=== PATIENT | female | born 1960 | race African-American/Black ===

== ENCOUNTER 2019-12-22 21:55 | IRF | payer OTHER, SELFPAY ==
[2019-12-22 22:09] VITALS: BMI 26.5
[2019-12-22 22:10] VITALS: BP 130/67; PULSE 83; RESP 18; TEMP 36.2; O2SAT 100
[2019-12-22 22:45] LABS: Glucose Point of Care 233 (65-105)
--- NOTE | 2019-12-22 23:33 | ADMGEN ---
This patient, Letty Andrade, was admitted to [facility] Room 226-02. Patient/family oriented to hospital policies and general routines including ID bracelet, bed and alarms, visiting hours, pain management, procedures, bathroom and other care routines, personal items, smoking policy, room service/diet, and visiting hours. Valuables list has been completed. Information on how to activate the Rapid Response Team has been discussed. Patient/Family are encouraged to report perceived risks to care and to ask questions if they do not understand what they are told or what they should do.
[2019-12-22] MEDS: CEFUROXIME AXETIL 250 MG TABLET PO (23:48)
[2019-12-22] MEDS: metroNIDAZOLE 250 MG TABLET 500 MG PO (23:52)
[2019-12-23 04:40] LABS: Basophils Absolute Auto 0.1 K/mm3 (0.0-0.1); Basophils Percent Auto 0.6 % (0.2-1.2); Eosinophils Absolute Auto 0.3 K/mm3 (0-0.3); Eosinophils Percent Auto 2.3 % (0-4.4); Hematocrit 30.5 % (37.0-47.0); Hemoglobin 10.3 g/dL (12.0-15.0); Immature Granulocyte Absolute 0.16 K/mm3 (0.00-0.031); Immature Granulocyte Percent A 1.3 % (0-0.5); Lymphocytes Absolute Auto 3.61 K/mm3 (0.9-3.2); Lymphocytes Percent Auto 30.3 % (18.3-44.2); Mean Corpuscular HGB Conc 33.8 g/dl (32-36); Mean Corpuscular Hemoglobin 27.7 pg (26-34); Monocytes Absolute Auto 0.9 K/mm3 (0.1-0.6); Monocytes Percent Auto 7.2 % (2.6-8.5); Neutrophils Percent Auto 58.3 % (45.5-73.1); Platelet Count Result 524 k/mm3 (150-375); Red Blood Count 3.72 M/mm3 (4.2-5.4); Red Cell Distribution Width 15.5 % (11.5-14.5); White Blood Count 11.9 K/mm3 (4.5-10.0)
[2019-12-23 04:49] LABS: Hemoglobin A1C 10.1 % (<5.7)
[2019-12-23 04:55] LABS: Blood Urea Nitrogen 10 mg/dL (7-17); Calcium 8.4 mg/dL (8.4-10.2); Carbon Dioxide 28 mmol/L (22-30); Chloride 103 mmol/L (98-107); Estimated CRCL calculation 59 ml/min; Estimated Glomerular Filt Rate > 60; Glucose 159 mg/dL (65-105); Potassium 4.2 mmol/L (3.4-5.0); Sodium 137 mmol/L (137-145)
[2019-12-23 06:00] VITALS: BP 127/63; PULSE 79; RESP 18; TEMP 36.6; O2SAT 94
[2019-12-23 06:57] LABS: Glucose Point of Care 154 (65-105)
[2019-12-23] MEDS: metroNIDAZOLE 250 MG TABLET 500 MG PO ×3 (07:18→20:30)
[2019-12-23] MEDS: AMLODIPINE BESYLATE 5 MG TABLET 10 MG PO (08:48)
[2019-12-23] MEDS: CEFUROXIME AXETIL 250 MG TABLET PO ×2 (08:48→20:29)
[2019-12-23] MEDS: INSULIN GLARGINE (*BKC) 100 UNITS/ML 25 UNITS SUB-Q (08:49)
--- NOTE | 2019-12-23 11:45 | WPDREHABHP ---
H&P: HPI History of Present Illness Chief complaint: R BKA Narrative: Letty Andrade is a 59 year old femaleHISTORY OF PRESENT ILLNESS: The patient's primary rehab impairment category is 10/amputation/lower extremity The etiologic diagnosis is gangrene right foot / status post right [id number] amputation I saw this patient [id number] on December 23, 2019 at 11:00 a.m. The patient is a 59-year-old right-handed Afro [place]ian woman with a past medical history of poorly controlled diabetes mellitus, Graves disease, hypertension, and peripheral vascular disease who presented to [facility] on December 15, 2019 from the vascular surgeon's office with gangrene of the right foot. Patient states that she has had the symptoms for months but was afraid to come to the hospital to the ID- pandemic. She was found to have gangrene of the right foot with leukocytosis of 27,000 and was directly admitted for an amputation. She was started on IV cefepime, Flagyl, vancomycin. Her blood sugar on presentation was 355 she was noted to have an acute kidney injury with an elevated creatinine. She was treated with gentle hydration and insulin. Vascular surgery was consulted and the patient underwent a [id number] amputation December 17, 2019. Postoperatively the patient has experienced acute blood-loss anemia, acute postoperative pain, leukocytosis, urinary retention had Flowers catheter for December 17 to December 18. , hypertension and hyperglycemia. She is currently on oral and injects for postoperative pain, she is hemodynamically stable at present with a hemoglobin of 11.4, leukocytosis is improving from 20/7 1213 1000.900 acute kidney injury has resolved with a creatinine of 0.7 now urinary retention has resolved and the patient is urinating on her own, hypertension is under control with oral medications and hyperglycemia is under control with insulin administration. She is on a regular diabetic diet The patient has not traveled outside the [place] in the past 21 days and has not had close personal contact anyone that has. The patient os has not traveled to an area of the [place] that is experiencing no transmission of the Coronavirus and has not had close personal contact with anyone that has. That patient does not have fever. The patient is not experiencing any lower respiratory illness symptoms. Therapy was initiated at the acute care facility and the patient transferred to us from [facility] on December 22, 2019 on FALLS OR SURGERIES: The patient has had major surgeries in the 100 days prior to admission. They had no falls in the past year. They had no falls with injury in the past year. PAST MEDICAL HISTORY: uncontrolled diabetes mellitus, Graves disease, hypertension, peripheral vascular disease, gangrene right foot, allergic rhinitis, hayfever, tobacco abuse. PAST SURGICAL HISTORY: 1975, vaginal delivery 90 in 77, amputation 2nd through 4th toes on August 13, 2017 SOCIAL HISTORY: patient lives the children it to level home 2 steps to enter. Patient was completely independent prior. Her granddaughter will be her designated caregiver following rehab. There are no falls in the past 6 months listed. There was a major surgery this admission. Current everyday smoker. No alcohol or drug abuse FAMILY HISTORY: first-degree relatives with hypertension and diabetes PRIOR LEVEL OF FUNCTION: Eating was INDEPENDENT Oral Care was INDEPENDENT Toileting Hygiene was INDEPENDENT Shower/Bathing was INDEPENDENT Upper Body Dressing was INDEPENDENT Lower Body Dressing was INDEPENDENT Donning/Balm Footwear was INDEPENDENT Rolling Left and Right was INDEPENDENT Sit to Lying was INDEPENDENT Lying to Sitting was INDEPENDENT Sit to Stand was INDEPENDENT Bed to Chair Transfers was INDEPENDENT Toilet Transfers was INDEPENDENT Walking was INDEPENDENT >500 feet with NO DEVICE Wheelchair Mobility was NOT APPLICABLE PRIOR
[2019-12-23 13:06] VITALS: BMI 26.5
[2019-12-23 14:00] VITALS: BP 149/77; PULSE 100; RESP 18; TEMP 36.3; O2SAT 92
[2019-12-23 22:00] VITALS: BP 123/64; PULSE 68; RESP 18; TEMP 36.2; O2SAT 100
[2019-12-24 06:00] VITALS: BP 126/62; PULSE 66; RESP 18; TEMP 36.4; O2SAT 100
[2019-12-24] MEDS: metroNIDAZOLE 250 MG TABLET 500 MG PO ×3 (06:48→20:47)
[2019-12-24 07:04] LABS: Glucose Point of Care 156 (65-105)
[2019-12-24] MEDS: CEFUROXIME AXETIL 250 MG TABLET PO ×2 (09:23→20:47)
[2019-12-24] MEDS: AMLODIPINE BESYLATE 5 MG TABLET 10 MG PO (09:23)
[2019-12-24] MEDS: INSULIN GLARGINE (*BKC) 100 UNITS/ML 25 UNITS SUB-Q (09:24)
--- NOTE | 2019-12-24 11:05 | RPD ---
INDIVIDUALIZED PLAN OF CARE FOR Letty Andrade Brief Synthesis of Pre-Admission Screen, Post-Admission Evaluation and Therapy Evaluations: The patient presents to rehab with gangrene of the right foot. Comorbidities include: Allergic rhinitis/hayfever, hypertension, peripheral vascular disease, uncontrolled diabetes mellitus, Grave's disease, status post right below knee amputation for gangrene right foot, acute postoperative pain, acute blood loss anemia, urinary urgency.The patient requires physician services for medical oversight, management of post-op complications in the setting of present comorbidities, management of uncontrolled diabetes mellitus diagnosis, and pain management. The patient requires nursing services for anticoagulation therapy, diabetes training, DVT prophylactics, IV administration, infection protection, medication management and education, pressure relief, and wound care. Deficits include:ADLs, Balance, Endurance, Family Training/Education, Mobility, Pain Management, ROM, Safety, Strength, Transfers Slabbing Machine Operator/Case Management for: Discharge Planning and Patient/Family Counseling Physical Therapy: 5 days per week for 90 minutes. Treatments may include: Therapeutic Exercise, Gait Training, Neuromuscular Re-education, Transfer Training, Community Reintegration, Bed Mobility, Patient/Family Education, Wheelchair Mobility Group Therapy/Concurrent Therapy Rationales: -Improve attention span during functional activities in a distracted environment. -Enhance problem solving and/or adequate judgment skills during functional activities in a distracted environment. -Promote increased safety awareness in a distracted environment to reduce fall risk with functional tasks, transfers, and ambulation to allow a more safe, self-sufficient return to the home environment. -Improve dynamic balance skills to promote safety and independence with functional activities in a distracted environment for maximum gain. Occupational Therapy: 5 days per week for 90 minutes. Treatments may include: Therapeutic Exercise, Therapeutic Activity, Cognitive Training, Self-Care Transfer Training, Community Reintegration, Home Management, Patient/Family Education, Wheelchair Mobility Training, Energy Conservation Training Group Therapy/Concurrent Therapy Rationales: -Allow therapist to observe and teach generalization and carry-over of skills learned in individual therapy. -Enhance problem solving and sequencing skills during therapeutic activities in a distracted environment. -Promote increased safety awareness in a realistic setting to reduce fall risk with functional tasks due to visual and verbal distractions. -Increase functional level with ADLs, ADL transfers and use of adaptive equipment through therapeutic activities with others while promoting safety to allow a more safe, self-sufficient return home. Medical Prognosis: Good Anticipated Length of Stay: 12 days Rehab Goals: Eating Goal: 06-Independent Oral Hygiene Goal: 06-Independent Toileting Hygiene Goal: 06-Independent Shower/Bathe Self Goal: 04-Supervision or Touching Assistance Upper Body Dressing Goal: 06-Independent Lower Body Dressing Goal: 06-Independent Putting On/Taking Off Footwear Goal: 06-Independent Rolling Left and Right Goal: 06-Independent Sit to Lying Goal: 06-Independent Lying to Sitting on Side of Bed Goal: 06-Independent Sit to Stand Goal: 06-Independent Chair/Uou-xi-Roifx Transfer Goal: 06-Independent Toilet Transfer Goal: 06-Independent Car Transfer Goal: 06-Independent Walk 10' Goal: 06-Independent Walk 50' with Two Turns Goal: 06-Independent Walk 150' Goal: 88-Not Attempted Due to Medical Condition/Safety Concerns Walk 10' on Uneven Surface Goal: 06-Independent 1 Step (Curb) Goal: 03-Partial/Moderate Assistance 4 Steps Goal: 03-Partial/Moderate Assistance 12 Steps Goal Score: 09-Not Applicable Picking Up Object Goal: 06-Independent Wheel 50' with Two Turns Score: 06-In
--- NOTE | 2019-12-24 12:58 | WPDNEURORHBP ---
Subjective Date/time seen: 12/24/19 12:58 Interval history: this 59-year-old Afro-Nigerian diabetic woman was admitted after having had right BKA. She denies any unusual amount of pain. She also denies any headache nausea vomiting chest pain shortness of breath fever chills or sore throat The evidence of peripheral neuropathy and also the peripheral vascular disease is evident and stable Review of Systems Review of Systems: All systems reviewed & are unremarkable except as noted in HPI and below Functional Status Ambulation Ability Ability to Ambulate 10 Feet: Contact Guard Ambulation Assistive Devices: Walker, Standard Transfers Ability Ability to Transfer In/Out of Chair: Standby Assistance Exam Const: General: comfortable and no acute distress HENMT: General nose exam: Normal nares present Mouth: Yes moist mucous membranes Eyes: General: appearance normal, both eyes and all related structures Neck: Neck: supple and no JVD Resp: Effort & Inspection: normal respiratory effort Auscultation: clear to auscultation bilaterally Cardio: Rate: regular rate Rhythm: regular rhythm GI: GI Palp: Yes Soft to palpation Auscultation: normal bowel sounds Skin: General skin exam: normal color and no rashes or lesions noted Neuro: Other: patient is awake alert will oriented has normal speech and language function the generalized weakness is related to peripheral neuropathy and the surgery performed along with peripheral vascular disease Extrem: Other: the stump of right BKA he is Espinoza Objective Data Vital Signs Vital Signs: Vital Signs - 24 hr 12/23/19 14:00 12/23/19 22:00 12/24/19 06:00 Temperature 36.3 C L 36.2 C L 36.4 C Pulse Rate 100 68 66 Respiratory Rate 18 18 18 Blood Pressure 149/77 H 123/64 126/62 Pulse Oximetry 92 100 100 Intake/Output Intake/Output: Intake & Output 12/21/19 12/22/19 12/23/19 12/24/19 23:59 23:59 23:59 23:59 Intake Total 960 240 Balance 960 240 Meds/Results Medications: Active Medications Generic Name Dose Route Start Last Admin Trade Name Freq PRN Reason Stop Dose Admin Hydrocodone Bitart/Acetaminophen 1 tab 12/22/19 22:40 12/23/19 23:36 [place] 10-325 Mg PO 1 tab Q4H PRN Administration Pain Amlodipine Besylate 10 mg 12/23/19 09:00 12/24/19 09:23 Norvasc PO 10 mg DAILY ARMANI Administration Carisoprodol 250 mg 12/22/19 22:40 Soma PO TID PRN Spasms Cefuroxime Axetil 250 mg 12/22/19 23:00 12/24/19 09:23 Ceftin PO 250 mg Q12HR ARMANI Administration Dextrose 12.5 gm 12/22/19 22:33 Dextrose 50% Syringe IV PUSH PRN PRN Hypoglycemia Protocol Glucagon 1 mg 12/22/19 22:33 Glucagon For Inj IM PRN PRN Hypoglycemia Protocol Glucose 15 gm 12/22/19 22:33 Glutose 15 PO PRN PRN Hypoglycemia Protocol Dextrose 1,000 mls @ 100 mls/hr 12/22/19 22:33 Dextrose 5% 1,000 Ml IVPB PRN PRN Hypoglycemia Protocol Insulin Glargine 25 units 12/23/19 09:00 12/24/19 09:24 Lantus SUB-Q 25 units DAILY ARMANI Administration Metronidazole 500 mg 12/22/19 23:00 12/24/19 06:48 Flagyl PO 500 mg Q8HR ARMANI Administration Promethazine HCl/Codeine 5 ml 12/22/19 22:40 Phenergan /C Codeine PO Q6H PRN Cough Zinc Acetate/Diphenhydramine 1 applic 12/23/19 20:38 Benadryl 1% Cream TOPICAL BID PRN Itching Labs Labs: Laboratory Results - last 24 hr 12/24/19 07:02 POC Capillary Glucose 156 H Progress Note: A&P Assessment and Plan (1) Gangrene of right foot: Code(s): I96 - Gangrene, not elsewhere classified Status: Acute (2) Diabetes mellitus: Code(s): E11.9 - Type 2 diabetes mellitus without complications Status: Acute (3) Hypertension: Code(s): I10 - Essential (primary) hypertension Status: Acute (4) Peripheral neuropathy: Code(s): G62.9 - Po
[2019-12-24 14:00] VITALS: BP 147/67; PULSE 86; RESP 18; TEMP 36.3; O2SAT 100
[2019-12-24 21:43] VITALS: BP 139/84; PULSE 88; RESP 18; TEMP 36.9; O2SAT 99
[2019-12-25 05:07] LABS: Glucose Point of Care 196 (65-105)
[2019-12-25 06:00] VITALS: BP 139/78; PULSE 79; RESP 18; TEMP 36.7; O2SAT 98
[2019-12-25 06:03] LABS: Glucose Point of Care 142 (65-105)
[2019-12-25] MEDS: metroNIDAZOLE 250 MG TABLET 500 MG PO ×3 (06:04→21:22)
[2019-12-25] MEDS: AMLODIPINE BESYLATE 5 MG TABLET 10 MG PO (09:56)
[2019-12-25] MEDS: CEFUROXIME AXETIL 250 MG TABLET PO ×2 (09:56→21:22)
[2019-12-25] MEDS: INSULIN GLARGINE (*BKC) 100 UNITS/ML 25 UNITS SUB-Q (10:02)
[2019-12-25 12:59] LABS: Glucose Point of Care 155 (65-105)
[2019-12-25 14:00] VITALS: BP 128/61; PULSE 81; RESP 19; TEMP 36.1; O2SAT 99
--- NOTE | 2019-12-25 16:04 | WPDNEURORHBP ---
Subjective Date/time seen: 12/25/19 16:04 Interval history: this 59 year old Afro-[place] woman is here after having had a right and BKA she has underlying diabetes mellitus is a smoker and also a relatively noncompliant in taking care of her however diabetes The BKA is stable she denies any headache nausea vomiting chest pain shortness of breath fever chills sore throat Review of Systems Review of Systems: All systems reviewed & are unremarkable except as noted in HPI and below Functional Status Ambulation Ability Ability to Ambulate 10 Feet: Contact Guard Ambulation Assistive Devices: Walker, Standard Transfers Ability Ability to Transfer In/Out of Chair: Standby Assistance Exam Const: General: comfortable and no acute distress HENMT: General nose exam: Normal nares present Mouth: Yes moist mucous membranes Eyes: General: appearance normal, both eyes and all related structures Neck: Neck: supple and no JVD Resp: Effort & Inspection: normal respiratory effort Auscultation: clear to auscultation bilaterally Cardio: Rate: regular rate Rhythm: regular rhythm GI: GI Palp: Yes Soft to palpation Auscultation: normal bowel sounds Skin: General skin exam: normal color and no rashes or lesions noted Neuro: Other: patient is awake alert well oriented time place and person has normal cranial examination decreased strength lower extremities more so than the upper extremities related to neuropathy needing assistance is all the activities of daily living Extrem: Other: right BKA and bilateral neuropathy Psych: Mental Status: mental status grossly normal Objective Data Vital Signs Vital Signs: Vital Signs - 24 hr 12/24/19 21:43 12/25/19 06:00 Temperature 36.9 C 36.7 C Pulse Rate 88 79 Respiratory Rate 18 18 Blood Pressure 139/84 139/78 Pulse Oximetry 99 98 Intake/Output Intake/Output: Intake & Output 12/22/19 12/23/19 12/24/19 12/25/19 23:59 23:59 23:59 23:59 Intake Total 960 720 240 Balance 960 720 240 Meds/Results Medications: Active Medications Generic Name Dose Route Start Last Admin Trade Name Freq PRN Reason Stop Dose Admin Hydrocodone Bitart/Acetaminophen 1 tab 12/22/19 22:40 12/25/19 09:56 [place] 10-325 Mg PO 1 tab Q4H PRN Administration Pain Amlodipine Besylate 10 mg 12/23/19 09:00 12/25/19 09:56 Norvasc PO 10 mg DAILY ARMANI Administration Carisoprodol 250 mg 12/22/19 22:40 Soma PO TID PRN Spasms Cefuroxime Axetil 250 mg 12/22/19 23:00 12/25/19 09:56 Ceftin PO 250 mg Q12HR ARMANI Administration Dextrose 12.5 gm 12/22/19 22:33 Dextrose 50% Syringe IV PUSH PRN PRN Hypoglycemia Protocol Glucagon 1 mg 12/22/19 22:33 Glucagon For Inj IM PRN PRN Hypoglycemia Protocol Glucose 15 gm 12/22/19 22:33 Glutose 15 PO PRN PRN Hypoglycemia Protocol Dextrose 1,000 mls @ 100 mls/hr 12/22/19 22:33 Dextrose 5% 1,000 Ml IVPB PRN PRN Hypoglycemia Protocol Insulin Glargine 25 units 12/23/19 09:00 12/25/19 10:02 Lantus SUB-Q 25 units DAILY ARMANI Administration Metronidazole 500 mg 12/22/19 23:00 12/25/19 06:04 Flagyl PO 500 mg Q8HR ARMANI Administration Promethazine HCl/Codeine 5 ml 12/22/19 22:40 Phenergan /C Codeine PO Q6H PRN Cough Zinc Acetate/Diphenhydramine 1 applic 12/23/19 20:38 Benadryl 1% Cream TOPICAL BID PRN Itching Labs Labs: Laboratory Results - last 24 hr 12/24/19 12/25/19 12/25/19 20:34 06:00 12:46 POC Capillary Glucose 196 H 142 H 155 H Progress Note: A&P Assessment and Plan (1) Gangrene of right foot: Code(s): I96 - Gangrene, not elsewhere classified Status: Acute (2) Diabetes mellitus: Code(s): E11.9 - Type 2 diabetes mellitus without complications Status: Acute (3) Hypertension: Code(s): I10 - Essential (primary) hypertension
[2019-12-25 17:42] LABS: Glucose Point of Care 183 (65-105)
[2019-12-25 20:00] VITALS: BP 146/62; PULSE 89; RESP 20; TEMP 37; O2SAT 98
[2019-12-25 21:46] LABS: Glucose Point of Care 269 (65-105)
[2019-12-26 06:00] VITALS: BP 112/61; PULSE 78; RESP 20; TEMP 37.1; O2SAT 100
[2019-12-26] MEDS: metroNIDAZOLE 250 MG TABLET 500 MG PO ×3 (06:44→20:07)
[2019-12-26 07:00] LABS: Glucose Point of Care 168 (65-105)
[2019-12-26] MEDS: CEFUROXIME AXETIL 250 MG TABLET PO ×2 (10:02→20:07)
[2019-12-26] MEDS: AMLODIPINE BESYLATE 5 MG TABLET 10 MG PO (10:02)
[2019-12-26] MEDS: INSULIN GLARGINE (*BKC) 100 UNITS/ML 25 UNITS SUB-Q (10:05)
[2019-12-26 12:50] LABS: Glucose Point of Care 234 (65-105)
[2019-12-26 14:00] VITALS: BP 144/72; PULSE 100; RESP 20; TEMP 36.4; O2SAT 100
[2019-12-26 17:18] LABS: Glucose Point of Care 364 (65-105)
--- NOTE | 2019-12-26 18:39 | WPDNEURORHBP ---
Subjective Date/time seen: 12/26/19 18:39 Interval history: this 59-year-old diabetic woman is here after having had a right BKA she is doing fairly well and wants to go home however has not achieved the goal yet she denies any headache nausea vomiting chest pain shortness of breath fever chills sore throat Review of Systems Review of Systems: All systems reviewed & are unremarkable except as noted in HPI and below Functional Status Ambulation Ability Ability to Ambulate 10 Feet: Contact Guard Ambulation Assistive Devices: Walker, Standard Transfers Ability Ability to Transfer In/Out of Chair: Standby Assistance Exam Const: General: comfortable and no acute distress HENMT: General nose exam: Normal nares present Mouth: Yes moist mucous membranes Eyes: General: appearance normal, both eyes and all related structures Neck: Neck: supple and no JVD Resp: Effort & Inspection: normal respiratory effort Auscultation: clear to auscultation bilaterally Cardio: Rate: regular rate Rhythm: regular rhythm GI: GI Palp: Yes Soft to palpation Auscultation: normal bowel sounds Skin: General skin exam: normal color and no rashes or lesions noted Other: the area in both antecubital fossa shows some discoloration however it is related to the IV sites where she has had the application of the tapes Neuro: Other: mental status exam hill normal cranial exam shows normal distance is generally improving right BKA is stable Extrem: Other: right BKA stable Psych: Mental Status: mental status grossly normal Objective Data Vital Signs Vital Signs: Vital Signs - 24 hr 12/25/19 20:00 12/26/19 06:00 12/26/19 14:00 Temperature 37.0 C 37.1 C 36.4 C L Pulse Rate 89 78 100 Respiratory Rate 20 20 20 Blood Pressure 146/62 H 112/61 144/72 H Pulse Oximetry 98 100 100 Intake/Output Intake/Output: Intake & Output 12/23/19 12/24/19 12/25/19 12/26/19 23:59 23:59 23:59 23:59 Intake Total 502 388 4241 720 Balance 250 560 0168 720 Meds/Results Medications: Active Medications Generic Name Dose Route Start Last Admin Trade Name Freq PRN Reason Stop Dose Admin Hydrocodone Bitart/Acetaminophen 1 tab 12/22/19 22:40 12/25/19 21:26 [place] 10-325 Mg PO 1 tab Q4H PRN Administration Pain Amlodipine Besylate 10 mg 12/23/19 09:00 12/26/19 10:02 Norvasc PO 10 mg DAILY ARMANI Administration Carisoprodol 250 mg 12/22/19 22:40 Soma PO TID PRN Spasms Cefuroxime Axetil 250 mg 12/22/19 23:00 12/26/19 10:02 Ceftin PO 250 mg Q12HR ARMANI Administration Dextrose 12.5 gm 12/22/19 22:33 Dextrose 50% Syringe IV PUSH PRN PRN Hypoglycemia Protocol Glucagon 1 mg 12/22/19 22:33 Glucagon For Inj IM PRN PRN Hypoglycemia Protocol Glucose 15 gm 12/22/19 22:33 Glutose 15 PO PRN PRN Hypoglycemia Protocol Dextrose 1,000 mls @ 100 mls/hr 12/22/19 22:33 Dextrose 5% 1,000 Ml IVPB PRN PRN Hypoglycemia Protocol Insulin Glargine 25 units 12/23/19 09:00 12/26/19 10:05 Lantus SUB-Q 25 units DAILY ARMANI Administration Metronidazole 500 mg 12/22/19 23:00 12/26/19 13:13 Flagyl PO 500 mg Q8HR ARMANI Administration Promethazine HCl/Codeine 5 ml 12/22/19 22:40 Phenergan /C Codeine PO Q6H PRN Cough Zinc Acetate/Diphenhydramine 1 applic 12/23/19 20:38 Benadryl 1% Cream TOPICAL BID PRN Itching Labs Labs: Laboratory Results - last 24 hr 12/25/19 12/26/19 12/26/19 21:32 06:18 12:40 POC Capillary Glucose 269 H 168 H 234 H 12/26/19 17:15 POC Capillary Glucose 364 H Progress Note: A&P Assessment and Plan (1) Gangrene of right foot: Code(s): I96 - Gangrene, not elsewhere classified Status: Acute (2) Diabetes mellitus: Code(s): E11.9 - Type 2 diabetes mellitus without complications Status: Acute (3) Hypertension: Code(
[2019-12-26 21:44] LABS: Glucose Point of Care 373 (65-105)
[2019-12-26 22:04] VITALS: BP 148/87; PULSE 86; RESP 20; TEMP 36.4; O2SAT 100
[2019-12-27 06:00] VITALS: BP 118/54; PULSE 79; RESP 20; TEMP 37.1; O2SAT 96
[2019-12-27 06:49] LABS: Glucose Point of Care 233 (65-105)
[2019-12-27] MEDS: metroNIDAZOLE 250 MG TABLET 500 MG PO ×3 (06:52→21:02)
[2019-12-27] MEDS: AMLODIPINE BESYLATE 5 MG TABLET 10 MG PO (09:08)
[2019-12-27] MEDS: CEFUROXIME AXETIL 250 MG TABLET PO ×2 (09:09→21:02)
[2019-12-27] MEDS: INSULIN GLARGINE (*BKC) 100 UNITS/ML 25 UNITS SUB-Q (09:10)
--- NOTE | 2019-12-27 10:59 | WPDNEURORHBP ---
Subjective Date/time seen: DM ,S/P right BKA12/27/19 10:59 Review of Systems Review of Systems: All systems reviewed & are unremarkable except as noted in HPI and below Functional Status Ambulation Ability Ability to Ambulate 10 Feet: Contact Guard Ambulation Assistive Devices: Walker, Standard Transfers Ability Ability to Transfer In/Out of Chair: Standby Assistance Exam Const: General: cooperative, comfortable and no acute distress HENMT: Head: normal to inspection Eyes: General: appearance normal, both eyes and all related structures Neck: Neck: full ROM Resp: Auscultation: clear to auscultation bilaterally Cardio: Rate: regular rate Rhythm: regular rhythm GI: Percussion: Yes normal to percussion Auscultation: normal bowel sounds Skin: General skin exam: no rashes or lesions noted Neuro: General: oriented to person, oriented to place, oriented to time and moves all extremities Cranial nerves: Yes CN's II-XII intact bilaterally, Yes Equal, round and reactive pupils present, Yes Nystagmus not present, Yes Normal facial strength present, Yes Midline tongue present, Yes Ability to bilaterally rotate head present and Yes Ability to bilaterally elevate shoulders present Cognition (Neuro): normal cognition Speech: normal speech Extrem: Right lower extremity: knee (right below knee amputee) Psych: Appearance: grossly normal Objective Data Vital Signs Vital Signs: Vital Signs - 24 hr 12/26/19 14:00 12/26/19 22:04 12/27/19 06:00 Temperature 36.4 C L 36.4 C 37.1 C Pulse Rate 100 86 79 Respiratory Rate 20 20 20 Blood Pressure 144/72 H 148/87 H 118/54 L Pulse Oximetry 100 100 96 Intake/Output Intake/Output: Intake & Output 12/24/19 12/25/19 12/26/19 12/27/19 23:59 23:59 23:59 23:59 Intake Total 720 1200 720 200 Balance 720 1200 720 200 Meds/Results Medications: Active Medications Generic Name Dose Route Start Last Admin Trade Name Freq PRN Reason Stop Dose Admin Hydrocodone Bitart/Acetaminophen 1 tab 12/22/19 22:40 12/27/19 09:57 [place] 10-325 Mg PO 1 tab Q4H PRN Administration Pain Amlodipine Besylate 10 mg 12/23/19 09:00 12/27/19 09:08 Norvasc PO 10 mg DAILY ARMANI Administration Carisoprodol 250 mg 12/22/19 22:40 Soma PO TID PRN Spasms Cefuroxime Axetil 250 mg 12/22/19 23:00 12/27/19 09:09 Ceftin PO 250 mg Q12HR ARMANI Administration Dextrose 12.5 gm 12/22/19 22:33 Dextrose 50% Syringe IV PUSH PRN PRN Hypoglycemia Protocol Glucagon 1 mg 12/22/19 22:33 Glucagon For Inj IM PRN PRN Hypoglycemia Protocol Glucose 15 gm 12/22/19 22:33 Glutose 15 PO PRN PRN Hypoglycemia Protocol Dextrose 1,000 mls @ 100 mls/hr 12/22/19 22:33 Dextrose 5% 1,000 Ml IVPB PRN PRN Hypoglycemia Protocol Insulin Glargine 25 units 12/23/19 09:00 12/27/19 09:10 Lantus SUB-Q 25 units DAILY ARMANI Administration Metronidazole 500 mg 12/22/19 23:00 12/27/19 06:52 Flagyl PO 500 mg Q8HR ARMANI Administration Promethazine HCl/Codeine 5 ml 12/22/19 22:40 Phenergan /C Codeine PO Q6H PRN Cough Zinc Acetate/Diphenhydramine 1 applic 12/23/19 20:38 Benadryl 1% Cream TOPICAL BID PRN Itching Labs Labs: Laboratory Results - last 24 hr 12/26/19 12/26/19 12/26/19 12:40 17:15 21:16 POC Capillary Glucose 234 H 364 H 373 H 12/27/19 06:46 POC Capillary Glucose 233 H Progress Note: A&P Assessment and Plan (1) Gangrene of right foot: Code(s): I96 - Gangrene, not elsewhere classified Status: Acute (2) Diabetes mellitus: Code(s): E11.9 - Type 2 diabetes mellitus without complications Status: Acute (3) Hypertension: Code(s): I10 - Essential (primary) hypertension Status: Acute (4) Peripheral neuropathy: Code(s): G62.9 - Polyneuropathy, unspecified Status: Acut
[2019-12-27 12:14] LABS: Glucose Point of Care 286 (65-105)
[2019-12-27 14:00] VITALS: BP 132/75; PULSE 83; RESP 18; TEMP 36.7; O2SAT 100
[2019-12-27 14:40] LABS: Glucose Point of Care 218 (65-105)
[2019-12-27 17:28] LABS: Glucose Point of Care 193 (65-105)
[2019-12-27 22:00] VITALS: BP 112/48; PULSE 66; RESP 16; TEMP 36.8; O2SAT 100
[2019-12-28 06:00] VITALS: BP 118/52; PULSE 76; RESP 20; TEMP 37.1; O2SAT 98
[2019-12-28] MEDS: metroNIDAZOLE 250 MG TABLET 500 MG PO ×2 (06:09→14:54)
[2019-12-28 06:16] LABS: Glucose Point of Care 180 (65-105)
[2019-12-28] MEDS: CEFUROXIME AXETIL 250 MG TABLET PO (09:14)
[2019-12-28] MEDS: AMLODIPINE BESYLATE 5 MG TABLET 10 MG PO (09:14)
[2019-12-28] MEDS: INSULIN GLARGINE (*BKC) 100 UNITS/ML 25 UNITS SUB-Q (09:16)
[2019-12-28 12:27] LABS: Glucose Point of Care 228 (65-105)
--- NOTE | 2019-12-28 12:55 | PCDIET ---
Nutrition Follow-Up Complete: Nutrition Diagnosis: Altered nutrition related labs related to diabetes mellitus as evidenced by HgbA1C of 10.1%. Nutrition Goal: Patient to consume 75% of meals/supplements or greater. Goal in progress. Patient consumed average of 73% of meals since last review. Reports good appetite and is requesting additional portions of chicken salad and diet gelatin. Last recorded weight is 72.4 kg. Recommend obtaining new weight. Bowel Motility: Last BM on 12/27/19. Labs Reviewed: Glu (180) Meds Noted: Ceftin, Lantus, Flagyl Additional Notes: Right leg incision with dressing. No documented pressure sores. Will continue to monitor with same goal. Nutrition Monitoring and Evaluation: Follow up in 7 days.
[2019-12-28 14:00] VITALS: BP 125/59; PULSE 81; RESP 20; TEMP 36.4; O2SAT 99
--- NOTE | 2019-12-28 14:28 | WPDNEURORHBP ---
Subjective Date/time seen: 12/28/19 14:28 Interval history: this 59-year-old diabetic woman is here after having had right BKA the patient is stable and wants to go home as usual she is even here noncompliant by the fact that she will eat her cookies and what over she likes to which I have counseled about it the daughter was on the telephone and the questions were answered she is improving very well we plan to discharged January 02, 2020 we will find out how long she needs to be on Ceftin and the the Flagyl next Patient denies any headache nausea vomiting chest pain no shortness of breath fever chills sore throat Review of Systems Review of Systems: All systems reviewed & are unremarkable except as noted in HPI and below Functional Status Ambulation Ability Ability to Ambulate 10 Feet: Independent Ability to Ambulate 50 Feet With 2 Turns: Independent Ambulation Assistive Devices: Walker, Standard Transfers Ability Ability to Transfer In/Out of Chair: Independent Exam Const: General: comfortable and no acute distress HENMT: General nose exam: Normal nares present Mouth: Yes moist mucous membranes Eyes: General: appearance normal, both eyes and all related structures Neck: Neck: supple and no JVD Resp: Effort & Inspection: normal respiratory effort Auscultation: clear to auscultation bilaterally Cardio: Rate: regular rate Rhythm: regular rhythm GI: GI Palp: Yes Soft to palpation Auscultation: normal bowel sounds Skin: General skin exam: normal color and no rashes or lesions noted Neuro: Other: patient is awake alert will oriented with normal cranial examination and improved strength symmetrically bilaterally evidence of peripheral neuropathy and evidence of peripheral vascular disease Extrem: Other: on the left BKA is stable Psych: Mental Status: mental status grossly normal Objective Data Vital Signs Vital Signs: Vital Signs - 24 hr 12/27/19 22:00 12/28/19 06:00 Temperature 36.8 C 37.1 C Pulse Rate 66 76 Respiratory Rate 16 20 Blood Pressure 112/48 L 118/52 L Pulse Oximetry 100 98 Intake/Output Intake/Output: Intake & Output 12/25/19 12/26/19 12/27/19 12/28/19 23:59 23:59 23:59 23:59 Intake Total 1200 720 440 480 Balance 1200 720 440 480 Meds/Results Medications: Active Medications Generic Name Dose Route Start Last Admin Trade Name Freq PRN Reason Stop Dose Admin Hydrocodone Bitart/Acetaminophen 1 tab 12/22/19 22:40 12/28/19 06:16 [place] 10-325 Mg PO 1 tab Q4H PRN Administration Pain Amlodipine Besylate 10 mg 12/23/19 09:00 12/28/19 09:14 Norvasc PO 10 mg DAILY ARMANI Administration Carisoprodol 250 mg 12/22/19 22:40 Soma PO TID PRN Spasms Cefuroxime Axetil 250 mg 12/22/19 23:00 12/28/19 09:14 Ceftin PO 250 mg Q12HR ARMANI Administration Dextrose 12.5 gm 12/22/19 22:33 Dextrose 50% Syringe IV PUSH PRN PRN Hypoglycemia Protocol Glucagon 1 mg 12/22/19 22:33 Glucagon For Inj IM PRN PRN Hypoglycemia Protocol Glucose 15 gm 12/22/19 22:33 Glutose 15 PO PRN PRN Hypoglycemia Protocol Dextrose 1,000 mls @ 100 mls/hr 12/22/19 22:33 Dextrose 5% 1,000 Ml IVPB PRN PRN Hypoglycemia Protocol Insulin Glargine 25 units 12/23/19 09:00 12/28/19 09:16 Lantus SUB-Q 25 units DAILY ARMANI Administration Metronidazole 500 mg 12/22/19 23:00 12/28/19 06:09 Flagyl PO 500 mg Q8HR ARMANI Administration Promethazine HCl/Codeine 5 ml 12/22/19 22:40 Phenergan /C Codeine PO Q6H PRN Cough Zinc Acetate/Diphenhydramine 1 applic 12/23/19 20:38 Benadryl 1% Cream TOPICAL BID PRN Itching Labs Labs: Laboratory Results - last 24 hr 12/27/19 12/27/19 12/28/19 14:26 17:15 06:09 POC Capillary Glucose 218 H 193 H 180 H 12/28/19 12:23 POC Capillary Glucose 228 H Progress Note: A&P Assessment and Plan (1) G
[2019-12-28 17:27] LABS: Glucose Point of Care 228 (65-105)
[2019-12-28 21:39] LABS: Glucose Point of Care 280 (65-105)
[2019-12-28 22:00] VITALS: BP 140/83; PULSE 89; RESP 18; TEMP 36.7; O2SAT 100
[2019-12-29 06:00] VITALS: BP 128/70; PULSE 84; RESP 16; TEMP 36.6; O2SAT 99
[2019-12-29 06:48] LABS: Glucose Point of Care 216 (65-105)
[2019-12-29] MEDS: AMLODIPINE BESYLATE 5 MG TABLET 10 MG PO (09:38)
[2019-12-29] MEDS: INSULIN GLARGINE (*BKC) 100 UNITS/ML 25 UNITS SUB-Q (09:43)
--- NOTE | 2019-12-29 10:56 | WPDNEURORHBP ---
Subjective Date/time seen: 12/29/19 10:56 Interval history: this 59-year-old woman who is a diabetic I suspect she is poorly compliant as for the diabetes is concerned is recuperating here after having a right BKA she does have underlying diabetic neuropathy and also peripheral vascular disease she denies any headache nausea vomiting chest pain shortness of breath fever chills or sore throat she will be ready to be discharged tomorrow to be followed by her primary care physician under of course will be followed by the surgeon who operated and performed right BKA Review of Systems Review of Systems: All systems reviewed & are unremarkable except as noted in HPI and below Functional Status Ambulation Ability Ability to Ambulate 10 Feet: Independent Ability to Ambulate 50 Feet With 2 Turns: Independent Ambulation Assistive Devices: Walker, Standard Transfers Ability Ability to Transfer In/Out of Chair: Independent Exam Const: General: comfortable and no acute distress HENMT: General nose exam: Normal nares present Mouth: Yes moist mucous membranes Eyes: General: appearance normal, both eyes and all related structures Neck: Neck: supple and no JVD Resp: Effort & Inspection: normal respiratory effort Auscultation: clear to auscultation bilaterally Cardio: Rate: regular rate Rhythm: regular rhythm GI: GI Palp: Yes Soft to palpation Auscultation: normal bowel sounds Skin: General skin exam: normal color and no rashes or lesions noted Neuro: Other: patient is awake and alert well oriented not any distress speech and language functions are normal cranial examination normal she does have evidence of peripheral neuropathy and also peripheral vascular disease and has strength has improved and she will be ready to be discharged tomorrow Extrem: Other: right BKA needs to be followed by the surgeon who performed the surgery Psych: Mental Status: mental status grossly normal Objective Data Vital Signs Vital Signs: Vital Signs - 24 hr 12/28/19 14:00 12/28/19 22:00 12/29/19 06:00 Temperature 36.4 C L 36.7 C 36.6 C Pulse Rate 81 89 84 Respiratory Rate 20 18 16 Blood Pressure 125/59 L 140/83 128/70 Pulse Oximetry 99 100 99 Intake/Output Intake/Output: Intake & Output 12/26/19 12/27/19 12/28/19 12/29/19 23:59 23:59 23:59 23:59 Intake Total 720 440 720 240 Balance 720 440 720 240 Meds/Results Medications: Active Medications Generic Name Dose Route Start Last Admin Trade Name Freq PRN Reason Stop Dose Admin Hydrocodone Bitart/Acetaminophen 1 tab 12/22/19 22:40 12/29/19 05:52 [place] 10-325 Mg PO 1 tab Q4H PRN Administration Pain Amlodipine Besylate 10 mg 12/23/19 09:00 12/29/19 09:38 Norvasc PO 10 mg DAILY ARMANI Administration Carisoprodol 250 mg 12/22/19 22:40 Soma PO TID PRN Spasms Dextrose 12.5 gm 12/22/19 22:33 Dextrose 50% Syringe IV PUSH PRN PRN Hypoglycemia Protocol Glucagon 1 mg 12/22/19 22:33 Glucagon For Inj IM PRN PRN Hypoglycemia Protocol Glucose 15 gm 12/22/19 22:33 Glutose 15 PO PRN PRN Hypoglycemia Protocol Dextrose 1,000 mls @ 100 mls/hr 12/22/19 22:33 Dextrose 5% 1,000 Ml IVPB PRN PRN Hypoglycemia Protocol Insulin Glargine 25 units 12/23/19 09:00 12/29/19 09:43 Lantus SUB-Q 25 units DAILY ARMANI Administration Promethazine HCl/Codeine 5 ml 12/22/19 22:40 Phenergan /C Codeine PO Q6H PRN Cough Zinc Acetate/Diphenhydramine 1 applic 12/23/19 20:38 Benadryl 1% Cream TOPICAL BID PRN Itching Labs Labs: Laboratory Results - last 24 hr 12/28/19 12/28/19 12/28/19 12:23 17:23 21:30 POC Capillary Glucose 228 H 228 H 280 H 12/29/19 06:27 POC Capillary Glucose 216 H Progress Note: A&P Assessment and Plan (1) Gangrene of right foot: Code(s): I96 - Gangrene, not elsewhere classified
[2019-12-29 11:56] LABS: Glucose Point of Care 182 (65-105)
[2019-12-29 14:00] VITALS: BP 100/62; PULSE 87; RESP 20; TEMP 36.4; O2SAT 98
[2019-12-29 17:12] LABS: Glucose Point of Care 247 (65-105)
[2019-12-29 21:35] LABS: Glucose Point of Care 290 (65-105)
[2019-12-29 22:00] VITALS: BP 135/67; PULSE 90; RESP 20; TEMP 37; O2SAT 98
[2019-12-30 04:45] LABS: Basophils Absolute Auto 0.1 K/mm3 (0.0-0.1); Basophils Percent Auto 0.7 % (0.2-1.2); Eosinophils Absolute Auto 0.2 K/mm3 (0-0.3); Eosinophils Percent Auto 1.7 % (0-4.4); Hematocrit 33.5 % (37.0-47.0); Hemoglobin 11.3 g/dL (12.0-15.0); Immature Granulocyte Absolute 0.02 K/mm3 (0.00-0.031); Immature Granulocyte Percent A 0.2 % (0-0.5); Lymphocytes Absolute Auto 3.78 K/mm3 (0.9-3.2); Lymphocytes Percent Auto 32.6 % (18.3-44.2); Mean Corpuscular HGB Conc 33.7 g/dl (32-36); Mean Corpuscular Hemoglobin 27.7 pg (26-34); Mean Corpuscular Volume 82.1 fl (80-100); Mean Platelet Volume 9.3 fl (7.4-10.4); Monocytes Absolute Auto 0.8 K/mm3 (0.1-0.6); Monocytes Percent Auto 7.2 % (2.6-8.5); Neutrophils Absolute Auto 6.7 K/mm3 (1.3-6.7); Neutrophils Percent Auto 57.6 % (45.5-73.1); Platelet Count Result 506 k/mm3 (150-375); Red Blood Count 4.08 M/mm3 (4.2-5.4); Red Cell Distribution Width 16.2 % (11.5-14.5); White Blood Count 11.6 K/mm3 (4.5-10.0)
[2019-12-30 05:07] LABS: Blood Urea Nitrogen 21 mg/dL (7-17); Calcium 8.9 mg/dL (8.4-10.2); Carbon Dioxide 28 mmol/L (22-30); Chloride 103 mmol/L (98-107); Estimated CRCL calculation 52 ml/min; Estimated Glomerular Filt Rate > 60; Glucose 275 mg/dL (65-105); Potassium 4.4 mmol/L (3.4-5.0); Sodium 134 mmol/L (137-145)
[2019-12-30 06:00] VITALS: BP 119/68; PULSE 81; RESP 18; TEMP 36.5; O2SAT 99
[2019-12-30] MEDS: AMLODIPINE BESYLATE 5 MG TABLET 10 MG PO (09:34)
[2019-12-30] MEDS: INSULIN GLARGINE (*BKC) 100 UNITS/ML 25 UNITS SUB-Q (09:34)
[2019-12-30 12:22] LABS: Glucose Point of Care 373 (65-105)
--- NOTE | 2020-01-04 14:58 | PM.DS ---
DS: Admitting Diagnosis Admitting Diagnosis Admitting Diagnosis: Type 2 diabetes mellitus with diabetic peripheral angiopathy with gangrene DS: Discharge Diagnosis Discharge Diagnosis (1) Gangrene of right foot: Code(s): I96 - Gangrene, not elsewhere classified Status: Acute (2) Diabetes mellitus: Code(s): E11.9 - Type 2 diabetes mellitus without complications Status: Acute (3) Hypertension: Code(s): I10 - Essential (primary) hypertension Status: Acute (4) Peripheral neuropathy: Code(s): G62.9 - Polyneuropathy, unspecified Status: Acute (5) Peripheral vascular disease: Code(s): I73.9 - Peripheral vascular disease, unspecified Status: Acute (6) Below-knee amputation of right lower extremity: Code(s): S88.111A - Complete traumatic amputation at level between knee and ankle, right lower leg, initial encounter Status: Acute DS: Summary Hospital Course Reason for hospitalization: the patient was admitted with the above-mentioned diagnosis in the problem as it has been mentioned in the history and physical examination Hospital Course: the patient was able to achieved the following independent measures eating independent, oral hygiene independent, toileting independent, bathing supervision, upper body dressing independent, lower body dressings independent, footwear independent rolling in bed independent sitting to lying independent lying to sitting independent [id number] independent chair transfers independent 12 transfers independent car transfers independent walking 10 feet independent walking 50 feet with 2 turns independent walking 150 feet patient was unable to walking 10 feet uneven surfaces supervision [place] step supervision 4 steps were vision 12 steps not available thinking of object independent wheelchair 50 feet independent wheelchair 150 feet independent Status at Discharge Cognitive/behavioral status at discharge: normal Time Spent with Patient Time attestation: Total time spent providing and/or coordinating discharge services: Exam Const: General: comfortable and no acute distress HENMT: General nose exam: Normal nares present Mouth: Yes dry mucous membranes Eyes: General: appearance normal, both eyes and all related structures Neck: Neck: supple and no JVD Resp: Effort & Inspection: normal respiratory effort Auscultation: clear to auscultation bilaterally Cardio: Rate: regular rate Rhythm: regular rhythm GI: GI Palp: Yes Soft to palpation Auscultation: normal bowel sounds Skin: General skin exam: normal color and no rashes or lesions noted Neuro: Other: patient remains awake alert well oriented time place and person with evidence of peripheral neuropathy and peripheral vascular disease Extrem: Other: the amputation site remains clean and healthy the patient have follow-up 1 with the treating surgeon Discharge Plan Discharge Attending physician on discharge: Addison Pacheco Discharging Clinician: Addison Pacheco Anticipated Discharge Date/Time: 12/30/19 11:05 Patient Disposition: Home Health Service Activity: may shower and no driving Diet: diabetic Wound Care Instructions: follow printed instructions Discharge Instructions: Follow up plan:2 weeks call for appt. Royal Butler MD [address] [place] [address] Virgilio Akers MD [address] [facility]. [place] [phone] patient may want to go back to her original insulin in the dose in the form when she checks in with her primary care physician Per Care Coordination: Home Health services have been arranged through [facility]. [facility] can be contacted at [phone] or [phone]. Please fax discharge instructions to [facility] at [phone]. Patient Instructions: Antibiotic Form, How to Stop Smoking (DC), Pain Karley
== END 2019-12-30 12:45 | disposition home health service (06) | DRG 561 ==
PROVIDERS: Admitting Provider Psychiatry & Neurology Neurology; PCP Family Medicine; Visit Provider Psychiatry & Neurology Neurology
DX: Z47.81 Encounter for orthopedic aftercare following surgical amputation (principal); Z89.511 Acquired absence of right leg below knee; E11.51 Type 2 diabetes mellitus with diabetic peripheral angiopathy without gangrene; D72.829 Elevated white blood cell count, unspecified; E11.65 Type 2 diabetes mellitus with hyperglycemia; E11.42 Type 2 diabetes mellitus with diabetic polyneuropathy; E05.00 Thyrotoxicosis with diffuse goiter without thyrotoxic crisis or storm; F17.210 Nicotine dependence, cigarettes, uncomplicated; I10 Essential (primary) hypertension; R33.9 Retention of urine, unspecified; Z91.19 Patient's noncompliance with other medical treatment and regimen; Z79.4 Long term (current) use of insulin
CPT/HCPCS: 36415; 80048; 83036; 85025; 97110; 97116; 97162; 97165; 97530; 97535; A9270; J1815

== ENCOUNTER 2020-04-14 10:10 | IRF | payer MEDICARE, SELFPAY ==
[2020-04-14 10:15] VITALS: BP 133/65; PULSE 86; RESP 18; TEMP 36.1; O2SAT 100; BMI 27.1
--- NOTE | 2020-04-14 11:47 | ADMGEN ---
This patient, Letty Andrade, was admitted to [facility] Room 224-02. Patient/family oriented to hospital policies and general routines including ID bracelet, bed and alarms, visiting hours, pain management, procedures, bathroom and other care routines, personal items, smoking policy, room service/diet, and visiting hours. Valuables list has been completed. Information on how to activate the Rapid Response Team has been discussed. Patient/Family are encouraged to report perceived risks to care and to ask questions if they do not understand what they are told or what they should do.
--- NOTE | 2020-04-14 13:30 | WPDREHABHP ---
H&P: HPI History of Present Illness Date/Time: 04/15/20 15:29 Chief complaint: Prosthetic /Gait Training R BKA Narrative: Letty Andrade is a 60 year old female HISTORY OF PRESENT ILLNESS: The patient's primary rehab impairment category isAmputation lower extremity The etiologic diagnosis is gangrene right status post right [id number] amputation I saw this patient [id number] on April 14, 2020 at 1:30 p.m. The patient is a 59-year-old Afro-[place] woman with a past medical history of poorly controlled diabetes mellitus, Graves disease, hypertension, osteoarthritis, COPD and peripheral vascular disease. On December 17, 2019 the patient underwent below-knee amputation due to gangrene in the right foot. Postoperatively she was discharged to acute rehab and was able to be discharged home on December 30, 2019 at supervision / minimum assist at a wheelchair level. The patient stump has healed and she received a right permanent prosthesis from [facility] on March 31, 2020. She is ready to complete intensive prosthetic training. The patient has vascular surgeon verifies that the patient needs inpatient acute rehabilitation for prosthetic training due to her right BKA amputation. The physician also certified as the patient can't tolerate physical and occupational therapy 3 hours per day 5 days a week. Her medical status subject to change given the sudden dramatic change in the activity level. The patient requires nursing services for infection protection, medication management, skin integrity management and care and the patient Education. I she will require close monitoring of her blood sugars as well as her skin integrity in the light of a change in the mobility. The patient currently demonstrates decreased strength and endurance, impaired balance and gait dysfunction. An intensive 5 day courses anticipated to attend the patient to an independent level. The patient has not traveled outside the [place] in the past 21 days and has not had close personal contact with anyone that has. The patient has not traveled to an area of the [place] that is experiencing known transmission of the Coronavirus and has not had close personal contact with anyone that has. The patient does not have a fever. The patient is not experiencing any lower respiratory illness symptoms. Therapy was initiated at the acute care facility and the patient transferred to us from Home on April 14, 2020 on FALLS OR SURGERIES: The patient has had no major surgeries in the 100 days prior to admission. They had no falls in the past year. They had no falls with injury in the past year. PAST MEDICAL HISTORY: uncontrolled diabetes mellitus, Graves disease, hypertension, peripheral vascular disease, gangrene of the right foot resulting in the right [id number] amputation, allergic rhinitis /a fever, and tobacco abuse PAST SURGICAL HISTORY: [age], vaginal delivery 9076, amputation 2nd through 4th toes August 13, 2017 and right [id number] amputation in November of 2019 SOCIAL HISTORY: current every day smoker. No alcohol or drug abuse. Lives with children. Patient lives with her as her boyfriend and granddaughter and a one-story home with a new portion ramp. She has 1 step to bedroom. The patient reported she was independent/supervision at wheelchair level for ADL less and IADL LEs. She is very motivated and wants to be able to accomplish ADLs / IADL less at standing level. Patient would like education / practice on how to get up from the floor. FAMILY HISTORY: First-degree relatives with hypertension and diabetes PRIOR LEVEL OF FUNCTION: Eating was INDEPENDENT Oral Care was INDEPENDENT Toileting Hygiene was INDEPENDENT Shower/Bathing was INDEPENDENT Upper Body Dressing was INDEPENDENT Lower Body Dressing was INDEPENDENT Donning/[place] Footwear was INDEPENDENT Rolling Left and Right was INDEPENDENT Sit to Lying was INDEPENDENT Lying to Sitting
[2020-04-14 14:29] VITALS: BMI 27.1
[2020-04-14] MEDS: ACARBOSE 25 MG TABLET 50 MG PO (16:32)
[2020-04-14] MEDS: NICOTINE (*PBKC) 14 MG PATCH 1 PATCH TRANSDERM (16:34)
[2020-04-14] MEDS: LACTIC ACID 12% LOTION 225 BTL 1 APPLIC TOPICAL (16:34)
[2020-04-14] MEDS: LATANOPROST 0.005% OP SOLN 2.5 ML BTL 1 DROP EACH EYE (16:35)
--- NOTE | 2020-04-14 16:56 | RPD ---
INDIVIDUALIZED PLAN OF CARE FOR Letty Andrade Brief Synthesis of Pre-Admission Screen, Post-Admission Evaluation and Therapy Evaluations: The patient presents to rehab for prosthetic training due to prior surgical intervention of gangrene of the right foot s/p right below knee amputation. Comorbidities include allergic rhinitis/hayfever, hypertension, peripheral vascular disease, uncontrolled diabetes mellitus, Grave's disease, acute pain, and urinary urgency. This patient requires intensive therapies to restore lost function due to the provision of a new prosthetic leg in order to maximize her functional level of independence and quality of life. The complexity of the patient's needs require an inpatient rehab hospital stay with a physician-led interdisciplinary team approach. The patient?s needs will be best met in an intensive program vs. at a lower level of care. The patient requires physician services for medical oversight, coordination of care, and pain management. Her medical status is subject to change given a sudden dramatic change in activity level. The patient requires nursing services for infection protection, medication management, skin integrity management and care, and patient education. She will require close monitoring of blood sugars as well as skin integrity in light of this change in mobility. Deficits include:ADLs, Balance, Endurance, Family Training/Education, Mobility, Pain Management, Safety, Strength, and Transfers. [place] Lawyer/Case Management for: Discharge Planning and Patient/Family Counseling Physical Therapy: 5 days per week for 90 minutes. Treatments may include: Therapeutic Exercise, Gait Training, Neuromuscular Re-education, Transfer Training, Community Reintegration, Bed Mobility, Patient/Family Education, Wheelchair Mobility Group Therapy/Concurrent Therapy Rationales: -Improve attention span during functional activities in a distracted environment. -Enhance problem solving and/or adequate judgment skills during functional activities in a distracted environment. -Promote increased safety awareness in a distracted environment to reduce fall risk with functional tasks, transfers, and ambulation to allow a more safe, self-sufficient return to the home environment. -Improve dynamic balance skills to promote safety and independence with functional activities in a distracted environment for maximum gain. Occupational Therapy: 5 days per week for 90 minutes. Treatments may include: Therapeutic Exercise, Therapeutic Activity, Cognitive Training, Self-Care Transfer Training, Community Reintegration, Home Management, Patient/Family Education, Wheelchair Mobility Training, Energy Conservation Training Group Therapy/Concurrent Therapy Rationales: -Allow therapist to observe and teach generalization and carry-over of skills learned in individual therapy. -Enhance problem solving and sequencing skills during therapeutic activities in a distracted environment. -Promote increased safety awareness in a realistic setting to reduce fall risk with functional tasks due to visual and verbal distractions. -Increase functional level with ADLs, ADL transfers and use of adaptive equipment through therapeutic activities with others while promoting safety to allow a more safe, self-sufficient return home. Medical Prognosis: Good Anticipated Length of Stay: 5 days Rehab Goals: Eating Goal: 06-Independent Oral Hygiene Goal: 06-Independent Toileting Hygiene Goal: 06-Independent Shower/Bathe Self Goal: 06-Independent Upper Body Dressing Goal: 06-Independent Lower Body Dressing Goal: 06-Independent Putting On/Taking Off Footwear Goal: 06-Independent Rolling Left and Right Goal: 06-Independent Sit to Lying Goal: 06-Independent Lying to Sitting on Side of Bed Goal: 06-Independent Sit to Stand Goal: 06-Independent Chair/Pzg-or-Bglfo Transfer Goal: 06-Independent Toilet Transfer Goal: 06-Independent Car Transfer Goal: 06-Independent Walk 10' Goal: 0
[2020-04-14] MEDS: FLUTICASONE PROPIONATE 0.05% NA SPR 16 GM BTL (*BKC) 2 SPRAY NASAL (20:27)
[2020-04-14] MEDS: DORZOLAMIDE/TIMOLOL OPHTH SOL 10 ML BOTTLE 1 DROP EACH EYE (20:28)
[2020-04-14] MEDS: BRIMONIDINE TARTRATE 0.1% 5 ML OPHTH DROPS 1 DROP EACH EYE (20:29)
[2020-04-14] MEDS: INSULIN GLARGINE (*BKC) 100 UNITS/ML 25 UNITS SUB-Q (20:29)
[2020-04-14 21:38] LABS: Glucose Point of Care 383 (65-105)
[2020-04-14 22:00] VITALS: BP 138/65; PULSE 76; RESP 18; TEMP 36.3; O2SAT 100
[2020-04-15 04:55] LABS: Basophils Percent Auto 0.5 % (0.2-1.2); Eosinophils Absolute Auto 0.3 K/mm3 (0-0.3); Eosinophils Percent Auto 2.9 % (0-4.4); Hematocrit 36.2 % (37.0-47.0); Hemoglobin 12.4 g/dL (12.0-15.0); Immature Granulocyte Absolute 0.02 K/mm3 (0.00-0.031); Immature Granulocyte Percent A 0.2 % (0-0.5); Lymphocytes Absolute Auto 4.09 K/mm3 (0.9-3.2); Lymphocytes Percent Auto 47.6 % (18.3-44.2); Mean Corpuscular HGB Conc 34.3 g/dl (32-36); Mean Corpuscular Hemoglobin 27.6 pg (26-34); Mean Corpuscular Volume 80.4 fl (80-100); Mean Platelet Volume 10.6 fl (7.4-10.4); Monocytes Absolute Auto 0.7 K/mm3 (0.1-0.6); Neutrophils Absolute Auto 3.5 K/mm3 (1.3-6.7); Neutrophils Percent Auto 40.8 % (45.5-73.1); Platelet Count Result 241 k/mm3 (150-375); Red Cell Distribution Width 13.2 % (11.5-14.5); White Blood Count 8.6 K/mm3 (4.5-10.0)
[2020-04-15 05:07] LABS: Anion Gap 7 mmol/L (8-16); Blood Urea Nitrogen 18 mg/dL (7-17); Calcium 9.3 mg/dL (8.4-10.2); Carbon Dioxide 23 mmol/L (22-30); Chloride 107 mmol/L (98-107); Estimated CRCL calculation 52 ml/min; Estimated Glomerular Filt Rate > 60; Glucose 241 mg/dL (65-105); Potassium 4.3 mmol/L (3.4-5.0); Sodium 137 mmol/L (137-145)
[2020-04-15] MEDS: BRIMONIDINE TARTRATE 0.1% 5 ML OPHTH DROPS 1 DROP EACH EYE ×3 (05:52→21:33)
[2020-04-15 06:00] VITALS: BP 116/65; PULSE 70; RESP 18; TEMP 36.2; O2SAT 97
[2020-04-15 06:47] LABS: Glucose Point of Care 195 (65-105)
[2020-04-15] MEDS: ACARBOSE 25 MG TABLET 50 MG PO ×3 (09:54→16:34)
[2020-04-15] MEDS: NICOTINE (*PBKC) 14 MG PATCH 1 PATCH TRANSDERM (09:55)
[2020-04-15] MEDS: DORZOLAMIDE/TIMOLOL OPHTH SOL 10 ML BOTTLE 1 DROP EACH EYE ×2 (09:55→21:33)
[2020-04-15] MEDS: amLODIPine BESYLATE 5 MG TABLET 10 MG PO (09:55)
[2020-04-15] MEDS: LACTIC ACID 12% LOTION 225 BTL 1 APPLIC TOPICAL ×2 (10:02→16:34)
[2020-04-15 14:00] VITALS: BP 119/66; PULSE 71; RESP 20; TEMP 36.3; O2SAT 100
[2020-04-15] MEDS: LATANOPROST 0.005% OP SOLN 2.5 ML BTL 1 DROP EACH EYE (19:26)
[2020-04-15] MEDS: HYDROcodone/acetaminophen (*CRX) 10-325 MG TABLET 1 TAB PO (19:34)
[2020-04-15] MEDS: FLUTICASONE PROPIONATE 0.05% NA SPR 16 GM BTL (*BKC) 2 SPRAY NASAL (21:33)
[2020-04-15] MEDS: INSULIN GLARGINE (*BKC) 100 UNITS/ML 25 UNITS SUB-Q (21:37)
[2020-04-15 21:54] LABS: Glucose Point of Care 364 (65-105)
[2020-04-15 21:59] VITALS: BP 114/57; PULSE 74; RESP 18; TEMP 36.2; O2SAT 100
[2020-04-16 06:00] VITALS: BP 112/57; PULSE 69; RESP 18; TEMP 36.4; O2SAT 100
[2020-04-16] MEDS: BRIMONIDINE TARTRATE 0.1% 5 ML OPHTH DROPS 1 DROP EACH EYE ×3 (06:44→22:39)
[2020-04-16 06:47] LABS: Glucose Point of Care 193 (65-105)
[2020-04-16] MEDS: HYDROcodone/acetaminophen (*CRX) 10-325 MG TABLET 1 TAB PO ×2 (06:56→22:55)
[2020-04-16] MEDS: amLODIPine BESYLATE 5 MG TABLET 10 MG PO (08:59)
[2020-04-16] MEDS: ACARBOSE 25 MG TABLET 50 MG PO ×3 (08:59→17:02)
[2020-04-16] MEDS: DORZOLAMIDE/TIMOLOL OPHTH SOL 10 ML BOTTLE 1 DROP EACH EYE ×2 (09:00→20:19)
[2020-04-16] MEDS: LACTIC ACID 12% LOTION 225 BTL 1 APPLIC TOPICAL ×2 (09:00→17:02)
[2020-04-16] MEDS: NICOTINE (*PBKC) 14 MG PATCH 1 PATCH TRANSDERM (09:00)
[2020-04-16 10:53] VITALS: BP 143/66; PULSE 65; O2SAT 100
[2020-04-16] MEDS: CALCIUM CARBONATE (TUMS) 500 MG (200 MG ELEMENTAL) PO (11:00)
[2020-04-16 14:00] VITALS: BP 136/87; PULSE 71; RESP 20; TEMP 36.8; O2SAT 100
--- NOTE | 2020-04-16 17:44 | WPDNEURORHBP ---
Subjective Date/time seen: 04/16/20 17:44 Interval history: this 60-year-old is here for prosthetic training several months after having had a right BKA she is doing remarkably well quite motivated denies any new complaints particularly denies any headache nausea vomiting chest pain shortness of breath fever chills sore throat his prosthesis is well fitting and she is working in the training quite well Review of Systems Review of Systems: All systems reviewed & are unremarkable except as noted in HPI and below Functional Status Ambulation Ability Ability to Ambulate 10 Feet: Standby Assistance Ability to Ambulate 50 Feet With 2 Turns: Standby Assistance Ability to Ambulate 150 Feet: Contact Guard Ambulation Assistive Devices: None and Cane Transfers Ability Ability to Transfer In/Out of Chair: Independent Exam Const: General: comfortable and no acute distress HENMT: General nose exam: Normal nares present Mouth: Yes moist mucous membranes Eyes: General: appearance normal, both eyes and all related structures Neck: Neck: supple and no JVD Resp: Effort & Inspection: normal respiratory effort Auscultation: clear to auscultation bilaterally Cardio: Rate: regular rate Rhythm: regular rhythm GI: GI Palp: Yes Soft to palpation Auscultation: normal bowel sounds Skin: General skin exam: normal color and no rashes or lesions noted Neuro: Other: patient is awake alert well oriented not any distress and working with the therapy and prosthetic training Extrem: Other: right BKA with prosthesis looks good Psych: Mental Status: mental status grossly normal Objective Data Vital Signs Vital Signs: Vital Signs - 24 hr 04/15/20 21:59 04/16/20 06:00 04/16/20 10:53 Temperature 36.2 C L 36.4 C L Pulse Rate 74 69 65 Respiratory Rate 18 18 Blood Pressure 114/57 L 112/57 L 143/66 H Pulse Oximetry 100 100 100 04/16/20 14:00 Temperature 36.8 C Pulse Rate 71 Respiratory Rate 20 Blood Pressure 136/87 Pulse Oximetry 100 Intake/Output Intake/Output: Intake & Output 04/13/20 04/14/20 04/15/20 04/16/20 23:59 23:59 23:59 23:59 Intake Total 960 720 240 Balance 960 720 240 Meds/Results Medications: Active Medications Generic Name Dose Route Start Last Admin Trade Name Freq PRN Reason Stop Dose Admin Acarbose 50 mg 04/14/20 17:00 04/16/20 17:02 Precose PO 05/14/20 17:01 50 mg TID ARMANI Administration Hydrocodone Bitart/Acetaminophen 1 tab 04/14/20 14:44 04/16/20 06:56 [place] 10-325 Mg PO 1 tab Q4H PRN Administration Pain Amlodipine Besylate 10 mg 04/15/20 09:00 04/16/20 08:59 Norvasc PO 10 mg DAILY ARMANI Administration Brimonidine Tartrate 1 drop 04/14/20 22:00 04/16/20 06:44 Alphagan P 0.1% EACH EYE 1 drop Q8HR ARMANI Administration Calcium Carbonate 200 mg 04/16/20 10:26 04/16/20 11:00 Tums PO 200 mg Q6H PRN Administration Indigestion Dextrose 12.5 gm 04/14/20 14:41 Dextrose 50% Syringe IV PUSH PRN PRN Hypoglycemia Protocol Dorzolamide/Timolol 1 drop 04/14/20 21:00 04/16/20 09:00 [place] Eye Drops EACH EYE 1 drop Q12HR ARMANI Administration Fluticasone Propionate 2 spray 04/14/20 21:00 04/15/20 21:33 Flonase 0.05% Nasal [place] NASAL 2 spray DAILY@2100 ARMANI Administration Glucagon 1 mg 04/14/20 14:41 Glucagon For Inj IM PRN PRN Hypoglycemia Protocol Glucose 15 gm 04/14/20 14:41 Glutose 15 PO PRN PRN Hypoglycemia Protocol Dextrose 1,000 mls @ 100 mls/hr 04/14/20 14:41 Dextrose 5% 1,000 Ml IVPB PRN PRN Hypoglycemia Protocol Insulin Glargine 25 units 04/14/20 21:00 04/15/20 21:37 Lantus SUB-Q 25 units HS ARMANI Administration Lactic Acid 1 applic 04/14/20 17:00 04/16/20 17:02 Lac-Hydrin Lotion TOPICAL 05/14/20 17:01 1 applic BID ARMANI Administration Latanoprost 1 drop 04/14/20 18:00 04/15/20 19:26 Xalatan EACH
[2020-04-16] MEDS: LATANOPROST 0.005% OP SOLN 2.5 ML BTL 1 DROP EACH EYE (19:27)
[2020-04-16] MEDS: INSULIN GLARGINE (*BKC) 100 UNITS/ML 25 UNITS SUB-Q (20:17)
[2020-04-16] MEDS: FLUTICASONE PROPIONATE 0.05% NA SPR 16 GM BTL (*BKC) 2 SPRAY NASAL (20:19)
[2020-04-16 20:36] LABS: Glucose Point of Care 270 (65-105)
[2020-04-16 21:41] VITALS: BP 137/75; PULSE 75; RESP 16; TEMP 36.7; O2SAT 100
[2020-04-17] MEDS: BRIMONIDINE TARTRATE 0.1% 5 ML OPHTH DROPS 1 DROP EACH EYE ×3 (05:33→22:16)
[2020-04-17 05:42] LABS: Glucose Point of Care 249 (65-105)
[2020-04-17 05:54] VITALS: BP 122/81; PULSE 66; RESP 16; TEMP 36.4; O2SAT 100
[2020-04-17] MEDS: ACARBOSE 25 MG TABLET 50 MG PO ×3 (08:21→17:02)
[2020-04-17] MEDS: DORZOLAMIDE/TIMOLOL OPHTH SOL 10 ML BOTTLE 1 DROP EACH EYE ×2 (08:22→20:31)
[2020-04-17] MEDS: amLODIPine BESYLATE 5 MG TABLET 10 MG PO (08:22)
[2020-04-17] MEDS: NICOTINE (*PBKC) 14 MG PATCH 1 PATCH TRANSDERM (08:22)
[2020-04-17] MEDS: LACTIC ACID 12% LOTION 225 BTL 1 APPLIC TOPICAL ×2 (08:23→17:02)
--- NOTE | 2020-04-17 11:00 | WPDNEURORHBP ---
Subjective Date/time seen: 04/17/20 11:00 60 years old admitted for prosthetic training with history of having had right BKA several months ago in addition to the history of poorly controlled diabetes mellitus, Graves disease, hypertension, osteoarthritis, COPD and peripheral vascular disease Review of Systems Review of Systems: All systems reviewed & are unremarkable except as noted in HPI and below Functional Status Ambulation Ability Ability to Ambulate 10 Feet: Standby Assistance Ability to Ambulate 50 Feet With 2 Turns: Standby Assistance Ability to Ambulate 150 Feet: Contact Guard Ambulation Assistive Devices: None and Cane Transfers Ability Ability to Transfer In/Out of Chair: Independent Exam Narrative: Exam Narrative: exam reveals her to be awake alert comfortable ear nose throat examination normal mucous membranes moist eyes normal neck supple with no JVD heart regular with no murmur lungs clear to auscultation abdomen is soft nontender normal bowel sounds skin normal neurological she is awake alert oriented x3 is speech nor dysphasic no dysarthric the cranial examination is normal and motor examination is normal except right BKA with a prosthesis which looks GERD blood sugar fluctuating Objective Data Vital Signs Vital Signs: Vital Signs - 24 hr 04/16/20 14:00 04/16/20 21:41 04/17/20 05:54 Temperature 36.8 C 36.7 C 36.4 C L Pulse Rate 71 75 66 Respiratory Rate 20 16 16 Blood Pressure 136/87 137/75 122/81 Pulse Oximetry 100 100 100 Intake/Output Intake/Output: Intake & Output 04/14/20 04/15/20 04/16/20 04/17/20 23:59 23:59 23:59 23:59 Intake Total 960 720 240 240 Balance 960 720 240 240 Meds/Results Medications: Active Medications Generic Name Dose Route Start Last Admin Trade Name Freq PRN Reason Stop Dose Admin Acarbose 50 mg 04/14/20 17:00 04/17/20 08:21 Precose PO 05/14/20 17:01 50 mg TID ARMANI Administration Hydrocodone Bitart/Acetaminophen 1 tab 04/14/20 14:44 04/16/20 22:55 [place] 10-325 Mg PO 1 tab Q4H PRN Administration Pain Amlodipine Besylate 10 mg 04/15/20 09:00 04/17/20 08:22 Norvasc PO 10 mg DAILY ARMANI Administration Brimonidine Tartrate 1 drop 04/14/20 22:00 04/17/20 05:33 Alphagan P 0.1% EACH EYE 1 drop Q8HR ARMANI Administration Calcium Carbonate 200 mg 04/16/20 10:26 04/16/20 11:00 Tums PO 200 mg Q6H PRN Administration Indigestion Dextrose 12.5 gm 04/14/20 14:41 Dextrose 50% Syringe IV PUSH PRN PRN Hypoglycemia Protocol Dorzolamide/Timolol 1 drop 04/14/20 21:00 04/17/20 08:22 Cosopt Eye Drops EACH EYE 1 drop Q12HR ARMANI Administration Fluticasone Propionate 2 spray 04/14/20 21:00 04/16/20 20:19 Flonase 0.05% Nasal [place] NASAL 2 spray DAILY@2100 ARMANI Administration Glucagon 1 mg 04/14/20 14:41 Glucagon For Inj IM PRN PRN Hypoglycemia Protocol Glucose 15 gm 04/14/20 14:41 Glutose 15 PO PRN PRN Hypoglycemia Protocol Dextrose 1,000 mls @ 100 mls/hr 04/14/20 14:41 Dextrose 5% 1,000 Ml IVPB PRN PRN Hypoglycemia Protocol Insulin Glargine 25 units 04/14/20 21:00 04/16/20 20:17 Lantus SUB-Q 25 units HS ARMANI Administration Lactic Acid 1 applic 04/14/20 17:00 04/17/20 08:23 Lac-Hydrin Lotion TOPICAL 05/14/20 17:01 1 applic BID ARMANI Administration Latanoprost 1 drop 04/14/20 18:00 04/16/20 19:27 Xalatan EACH EYE 1 drop QPM ARMANI Administration Nicotine 1 patch 04/14/20 15:50 04/17/20 08:22 Nicoderm Cq 14 Mg TRANSDERM 1 patch QAM ARMANI Administration Labs Labs: Laboratory Results - last 24 hr 04/16/20 04/17/20 20:16 05:35 POC Capillary Glucose 270 H 249 H Progress Note: A&P Assessment and Plan (1) Encounter for prosthetic gait training: Code(s): Z47.89 - Encounter for other orthopedic aftercare Status: Acute (2) Gangrene of right foot
[2020-04-17] MEDS: HYDROcodone/acetaminophen (*CRX) 10-325 MG TABLET 1 TAB PO ×2 (11:34→22:14)
[2020-04-17 14:00] VITALS: BP 122/63; PULSE 68; RESP 20; TEMP 36.3; O2SAT 99
[2020-04-17] MEDS: LATANOPROST 0.005% OP SOLN 2.5 ML BTL 1 DROP EACH EYE (17:02)
[2020-04-17 20:14] LABS: Glucose Point of Care 211 (65-105)
[2020-04-17] MEDS: FLUTICASONE PROPIONATE 0.05% NA SPR 16 GM BTL (*BKC) 2 SPRAY NASAL (20:31)
[2020-04-17] MEDS: INSULIN GLARGINE (*BKC) 100 UNITS/ML 25 UNITS SUB-Q (20:31)
[2020-04-17 22:00] VITALS: BP 125/70; PULSE 73; RESP 18; TEMP 36.3; O2SAT 100
[2020-04-18] MEDS: BRIMONIDINE TARTRATE 0.1% 5 ML OPHTH DROPS 1 DROP EACH EYE ×3 (05:12→22:00)
[2020-04-18 06:00] VITALS: BP 115/50; PULSE 62; RESP 18; TEMP 36.6; O2SAT 99
[2020-04-18 06:11] LABS: Glucose Point of Care 179 (65-105)
[2020-04-18] MEDS: DORZOLAMIDE/TIMOLOL OPHTH SOL 10 ML BOTTLE 1 DROP EACH EYE ×2 (09:09→20:32)
[2020-04-18] MEDS: amLODIPine BESYLATE 5 MG TABLET 10 MG PO (09:09)
[2020-04-18] MEDS: ACARBOSE 25 MG TABLET 50 MG PO ×3 (09:09→17:13)
[2020-04-18] MEDS: NICOTINE (*PBKC) 14 MG PATCH 1 PATCH TRANSDERM (09:10)
[2020-04-18] MEDS: LACTIC ACID 12% LOTION 225 BTL 1 APPLIC TOPICAL ×2 (09:10→17:13)
--- NOTE | 2020-04-18 10:01 | PCPTNOTE ---
Letty Andrade was evaluated for a straight cane on 04/18/2020 by this physical therapist. The straight cane will resolve patient's mobility limitations and will be used for ADL's within the home. The patient can safely use the straight cane. ?The straight cane will resolve the patient?s mobility deficits, including impaired balance. Angela Antunez, PT, DPT
[2020-04-18 14:00] VITALS: BP 152/90; PULSE 74; RESP 18; TEMP 36.3; O2SAT 100
--- NOTE | 2020-04-18 15:17 | WPDNEURORHBP ---
Subjective Date/time seen: 04/18/20 15:17 Interval history: this 60-year-old woman is here for the prosthetic training after having had [id number] amputation of the right lower extremity She is doing fairly well denies any headache nausea vomiting chest pain or shortness of breath fever chills sore throat an almost finishing the prosthetic training Review of Systems Review of Systems: All systems reviewed & are unremarkable except as noted in HPI and below Functional Status Ambulation Ability Ability to Ambulate 10 Feet: Independent Ability to Ambulate 50 Feet With 2 Turns: Independent Ability to Ambulate 150 Feet: Independent Ambulation Assistive Devices: None, Cane and Hand Hold Transfers Ability Ability to Transfer In/Out of Chair: Independent Exam Const: General: comfortable and no acute distress HENMT: General nose exam: Normal nares present Mouth: Yes moist mucous membranes Eyes: General: appearance normal, both eyes and all related structures Neck: Neck: supple and no JVD Resp: Effort & Inspection: normal respiratory effort Auscultation: clear to auscultation bilaterally Cardio: Rate: regular rate Rhythm: regular rhythm GI: GI Palp: Yes Soft to palpation Auscultation: normal bowel sounds Skin: General skin exam: normal color and no rashes or lesions noted Neuro: Other: patient remains awake alert quite boisterous and wanting to do everything what she wishes to do overall generalized weakness has improved and she is finished of the prosthetic training tomorrow morning Extrem: Other: a right BKA Psych: Mental Status: mental status grossly normal Objective Data Vital Signs Vital Signs: Vital Signs - 24 hr 04/17/20 22:00 04/18/20 06:00 04/18/20 14:00 Temperature 36.3 C L 36.6 C 36.3 C L Pulse Rate 73 62 74 Respiratory Rate 18 18 18 Blood Pressure 125/70 115/50 L 152/90 H Pulse Oximetry 100 99 100 Intake/Output Intake/Output: Intake & Output 04/15/20 04/16/20 04/17/20 04/18/20 23:59 23:59 23:59 23:59 Intake Total 720 240 720 720 Balance 720 240 720 720 Meds/Results Medications: Active Medications Generic Name Dose Route Start Last Admin Trade Name Freq PRN Reason Stop Dose Admin Acarbose 50 mg 04/14/20 17:00 04/18/20 14:03 Precose PO 05/14/20 17:01 50 mg TID ARMANI Administration Hydrocodone Bitart/Acetaminophen 1 tab 04/14/20 14:44 04/17/20 22:14 [place] 10-325 Mg PO 1 tab Q4H PRN Administration Pain Amlodipine Besylate 10 mg 04/15/20 09:00 04/18/20 09:09 Norvasc PO 10 mg DAILY ARMANI Administration Brimonidine Tartrate 1 drop 04/14/20 22:00 04/18/20 14:04 Alphagan P 0.1% EACH EYE 1 drop Q8HR ARMANI Administration Calcium Carbonate 200 mg 04/16/20 10:26 04/16/20 11:00 Tums PO 200 mg Q6H PRN Administration Indigestion Dextrose 12.5 gm 04/14/20 14:41 Dextrose 50% Syringe IV PUSH PRN PRN Hypoglycemia Protocol Dorzolamide/Timolol 1 drop 04/14/20 21:00 04/18/20 09:09 Cosopt Eye Drops EACH EYE 1 drop Q12HR ARMANI Administration Fluticasone Propionate 2 spray 04/14/20 21:00 04/17/20 20:31 Flonase 0.05% Nasal [place] NASAL 2 spray DAILY@2100 ARMANI Administration Glucagon 1 mg 04/14/20 14:41 Glucagon For Inj IM PRN PRN Hypoglycemia Protocol Glucose 15 gm 04/14/20 14:41 Glutose 15 PO PRN PRN Hypoglycemia Protocol Dextrose 1,000 mls @ 100 mls/hr 04/14/20 14:41 Dextrose 5% 1,000 Ml IVPB PRN PRN Hypoglycemia Protocol Insulin Glargine 25 units 04/14/20 21:00 04/17/20 20:31 Lantus SUB-Q 25 units HS ARMANI Administration Lactic Acid 1 applic 04/14/20 17:00 04/18/20 09:10 Lac-Hydrin Lotion TOPICAL 05/14/20 17:01 1 applic BID ARMANI Administration Latanoprost 1 drop 04/14/20 18:00 04/17/20 17:02 Xalatan EACH EYE 1 drop QPM ARMANI Administration Nicotine 1 patch 04/14/20 15:50 04/18/20 09:10
[2020-04-18] MEDS: LATANOPROST 0.005% OP SOLN 2.5 ML BTL 1 DROP EACH EYE (17:16)
[2020-04-18] MEDS: FLUTICASONE PROPIONATE 0.05% NA SPR 16 GM BTL (*BKC) 2 SPRAY NASAL (20:32)
[2020-04-18] MEDS: INSULIN GLARGINE (*BKC) 100 UNITS/ML 25 UNITS SUB-Q (20:33)
[2020-04-18 20:45] LABS: Glucose Point of Care 238 (65-105)
[2020-04-18 22:00] VITALS: BP 143/60; PULSE 74; RESP 20; TEMP 36.3; O2SAT 100
[2020-04-19 05:54] VITALS: BP 131/61; PULSE 69; RESP 18; TEMP 36.4; O2SAT 97
[2020-04-19] MEDS: BRIMONIDINE TARTRATE 0.1% 5 ML OPHTH DROPS 1 DROP EACH EYE (06:05)
[2020-04-19 06:36] LABS: Glucose Point of Care 232 (65-105)
[2020-04-19] MEDS: ACARBOSE 25 MG TABLET 50 MG PO (07:53)
[2020-04-19] MEDS: amLODIPine BESYLATE 5 MG TABLET 10 MG PO (07:53)
[2020-04-19] MEDS: DORZOLAMIDE/TIMOLOL OPHTH SOL 10 ML BOTTLE 1 DROP EACH EYE (07:53)
[2020-04-19] MEDS: LACTIC ACID 12% LOTION 225 BTL 1 APPLIC TOPICAL (07:54)
--- NOTE | 2020-04-19 11:03 | WPDNEURORHBP ---
Subjective Date/time seen: 04/19/20 11:03 Interval history: This 60-year-old woman has finished the prosthetic training and ready to be discharged she denies any complaints particularly denies any headache nausea vomiting chest pain shortness of breath fever chills sore throat Review of Systems Review of Systems: All systems reviewed & are unremarkable except as noted in HPI and below Functional Status Ambulation Ability Ability to Ambulate 10 Feet: Independent Ability to Ambulate 50 Feet With 2 Turns: Independent Ability to Ambulate 150 Feet: Independent Ambulation Assistive Devices: None, Cane and Hand Hold Transfers Ability Ability to Transfer In/Out of Chair: Independent Exam Const: General: comfortable and no acute distress HENMT: General nose exam: Normal nares present Mouth: Yes moist mucous membranes Eyes: General: appearance normal, both eyes and all related structures Neck: Neck: supple and no JVD Resp: Effort & Inspection: normal respiratory effort Auscultation: clear to auscultation bilaterally Cardio: Rate: regular rate Rhythm: regular rhythm GI: GI Palp: Yes Soft to palpation Auscultation: normal bowel sounds Skin: General skin exam: normal color and no rashes or lesions noted Neuro: Other: patient is awake alert well oriented has evidence of peripheral vascular disease and peripheral neuropathy has finished the training and has enough strength with the prosthesis to walk beautifully well and ready to be discharged Extrem: Other: the [facility] site is clean and healthy Psych: Mental Status: mental status grossly normal Objective Data Vital Signs Vital Signs: Vital Signs - 24 hr 04/18/20 14:00 04/18/20 22:00 04/19/20 05:54 Temperature 36.3 C L 36.3 C L 36.4 C L Pulse Rate 74 74 69 Respiratory Rate 18 20 18 Blood Pressure 152/90 H 143/60 H 131/61 Pulse Oximetry 100 100 97 Intake/Output Intake/Output: Intake & Output 04/16/20 04/17/20 04/18/20 04/19/20 23:59 23:59 23:59 23:59 Intake Total 815 960 4375 Balance 463 832 7376 Meds/Results Medications: Active Medications Generic Name Dose Route Start Last Admin Trade Name Freq PRN Reason Stop Dose Admin Acarbose 50 mg 04/14/20 17:00 04/19/20 07:53 Precose PO 05/14/20 17:01 50 mg TID ARMANI Administration Hydrocodone Bitart/Acetaminophen 1 tab 04/14/20 14:44 04/17/20 22:14 [place] 10-325 Mg PO 1 tab Q4H PRN Administration Pain Amlodipine Besylate 10 mg 04/15/20 09:00 04/19/20 07:53 Norvasc PO 10 mg DAILY ARMANI Administration Brimonidine Tartrate 1 drop 04/14/20 22:00 04/19/20 06:05 Alphagan P 0.1% EACH EYE 1 drop Q8HR ARMANI Administration Calcium Carbonate 200 mg 04/16/20 10:26 04/16/20 11:00 Tums PO 200 mg Q6H PRN Administration Indigestion Dextrose 12.5 gm 04/14/20 14:41 Dextrose 50% Syringe IV PUSH PRN PRN Hypoglycemia Protocol Dorzolamide/Timolol 1 drop 04/14/20 21:00 04/19/20 07:53 Cosopt Eye Drops EACH EYE 1 drop Q12HR ARMANI Administration Fluticasone Propionate 2 spray 04/14/20 21:00 04/18/20 20:32 Flonase 0.05% Nasal [place] NASAL 2 spray DAILY@2100 ARMANI Administration Glucagon 1 mg 04/14/20 14:41 Glucagon For Inj IM PRN PRN Hypoglycemia Protocol Glucose 15 gm 04/14/20 14:41 Glutose 15 PO PRN PRN Hypoglycemia Protocol Dextrose 1,000 mls @ 100 mls/hr 04/14/20 14:41 Dextrose 5% 1,000 Ml IVPB PRN PRN Hypoglycemia Protocol Insulin Glargine 25 units 04/14/20 21:00 04/18/20 20:33 Lantus SUB-Q 25 units HS ARMANI Administration Lactic Acid 1 applic 04/14/20 17:00 04/19/20 07:54 Lac-Hydrin Lotion TOPICAL 05/14/20 17:01 1 applic BID ARMANI Administration Latanoprost 1 drop 04/14/20 18:00 04/18/20 17:16 Xalatan EACH EYE 1 drop QPM ARMANI Administration Nicotine 1 patch 04/14/20 15:50 04/19/20 07:54 Nicoderm Cq 14 Mg TRANSDERM N
[2020-04-19] MEDS: HYDROcodone/acetaminophen (*CRX) 10-325 MG TABLET 1 TAB PO (11:05)
--- NOTE | 2020-04-21 13:36 | PM.DS ---
DS: Admitting Diagnosis Admitting Diagnosis Admitting Diagnosis: Prosthetic /Gait Training R DINA 59 years old right-handed female admitted to the rehab floor is status post right [id number] amputation secondary to gangrene of the right foot in addition to the comorbid condition of 1. Diabetes mellitus 2. Graves disease 3. Hypertension 4. Peripheral vascular disease. He was initially evaluated by the surgeon in his office for the gangrene of the right foot with information that should the symptoms were going on for a while her CBC revealed WBC [id number] he was started on cefepime Flagyl and vancomycin at the time of blood sugar was 01596 and she also had elevated creatinine she underwent [id number] amputation December 17, 2019 requiring the 40s catheter placement by the time she was transferred to rehab she was orally injection for postoperative pain hemodynamically she was stable leukocytosis was improving she had no history of exposure to the COVID during the hospitalization she was involved in the physical therapy and occupation therapy on a regular basis at the time of discharge she was independent in eating oral hygiene toileting bathing upper body dressing lower body dressing footwear rolling in bed sit to lying lying to sit sit to stand chair transfer toilet transfer car transfer walking 10ft 50ft with 2 turns 150ft 10ft on uneven surfaces [place] step 4 steps 12 status picking up objects and wheelchair for 50 and 150ft she was independent. able to transfer in and out of chair independently examination revealed her to be in no obvious acute distress ear nose throat examination normal neck is supple heart regular lungs clear with no rhonchi or crepitation abdomen is soft with normal bowel sounds nontender and neurological examination was essentially unchanged with grossly normal mental status examination DS: Discharge Diagnosis Discharge Diagnosis (1) Encounter for prosthetic gait training: Code(s): Z47.89 - Encounter for other orthopedic aftercare Status: Acute (2) Gangrene of right foot: Code(s): I96 - Gangrene, not elsewhere classified Status: Acute (3) Diabetes mellitus: Code(s): E11.9 - Type 2 diabetes mellitus without complications Status: Acute (4) Hypertension: Code(s): I10 - Essential (primary) hypertension Status: Acute (5) Peripheral neuropathy: Code(s): G62.9 - Polyneuropathy, unspecified Status: Acute (6) Peripheral vascular disease: Code(s): I73.9 - Peripheral vascular disease, unspecified Status: Acute (7) Below-knee amputation of right lower extremity: Code(s): S88.111A - Complete traumatic amputation at level between knee and ankle, right lower leg, initial encounter Status: Acute DS: Summary Time Spent with Patient Time attestation: Total time spent providing and/or coordinating discharge services: Discharge Plan Discharge Attending physician on discharge: Addison Pacheco Discharging Clinician: Addison Pacheco Anticipated Discharge Date/Time: 04/19/20 11:05 Patient Disposition: Home, Self-Care Activity: may shower and no driving Diet: diabetic Patient Instructions: Antibiotic Form, How to Stop Smoking (GEN), Cigarette Smoking and Your Health (GEN), Pain Management (GEN) Stand Alone Forms: General Discharge Information Follow-up/Referrals: Esequiel [Other] (follow up with primary care provider after discharge from [facility]) [email or web address] [Other] (follow up general surgery as needed) Discharge Medications: Continued latanoprost 0.005 % Drops 1 drp OPHTHALMIC (EYE) QPM RF: 0 ammonium lactate 12 % Lotion 1 applic TOPICAL BID RF: 0 acarbose 50 mg Tablet 50 mg PO TID RF: 0 dorzolamide-timolol 22.3-6.8 mg/mL Drops 1 drp OPHTHALMIC (EYE) QAM AND QPM RF: 0 fluticasone propionate [Flonase Allergy Relief] 50 mcg/actuation [place],Suspension 2 spray INTRANASAL DAILY RF: 0 Alphagan P 0.1 % Drops 1 drp
== END 2020-04-19 13:05 | disposition home or self-care (01) | DRG 561 ==
PROVIDERS: Admitting Provider Psychiatry & Neurology Neurology; Visit Provider Psychiatry & Neurology Neurology
DX: Z47.81 Encounter for orthopedic aftercare following surgical amputation (principal); Z89.511 Acquired absence of right leg below knee; E11.65 Type 2 diabetes mellitus with hyperglycemia; E11.51 Type 2 diabetes mellitus with diabetic peripheral angiopathy without gangrene; E05.00 Thyrotoxicosis with diffuse goiter without thyrotoxic crisis or storm; E11.42 Type 2 diabetes mellitus with diabetic polyneuropathy; F17.210 Nicotine dependence, cigarettes, uncomplicated; I10 Essential (primary) hypertension; J44.9 Chronic obstructive pulmonary disease, unspecified; M19.90 Unspecified osteoarthritis, unspecified site; R39.15 Urgency of urination; Z79.4 Long term (current) use of insulin; Z23 Encounter for immunization
CPT/HCPCS: 36415; 80048; 85025; 90471; 90686; 97110; 97116; 97161; 97165; 97530; 97535; 97542; A9270; G0008; J1815